=== PATIENT | female | born 1975 | race Caucasian/White ===

== ENCOUNTER 2018-12-08 12:06 | Emergency (ER) | payer OTHER, SELFPAY ==
[2018-12-08 12:15] VITALS: BP 147/81; PULSE 94; RESP 20; TEMP 36.8; O2SAT 100; BMI 24.7
--- NOTE | 2018-12-08 12:21 | ED.FEMALEGU ---
HPI - Female Genitourinary <AMBIKA Rogers - Last Filed: 12/08/18 13:19> General Chief complaint: Urogenital-Female Stated complaint: UTI Time Seen by Provider: 12/08/18 12:15 Source: patient Mode of arrival: ambulatory Limitations: no limitations History of Present Illness HPI Narrative: A 43-year-old female with a history of a hysterectomy, presents emergency department complaining of dysuria on and off for the past 4 days after swimming [place]. States she initially developed a fever for a day which subsided with the dysuria after drinking a lot of water. The past 2 days her symptoms have slowly returned, as she was unable to drink enough water, today the dysuria is worse and is associated with mild nausea, and constant dull aching 3/10 left flank pain. Denies aggravating or relieving symptoms. Denies fevers at this time, chills, chest pain, shortness of breath, headache, vomiting, change in stool patterns, vaginal discharge, dizziness, or leg swelling. Related Data Previous Rx's Medication Instructions Recorded sulfamethoxazole-trimethoprim 1 tab PO BID 5 Days #10 tab 12/08/18 [Bactrim DS] Allergies Allergy/AdvReac Type Severity Reaction Status Date / Time No Known Drug Allergies Allergy Verified 12/08/18 12:21 Review of Systems <AMBIKA Rogers - Last Filed: 12/08/18 13:19> Review of Systems REVIEW OF SYSTEMS: GENERAL: See HPI reports history fevers. HENT: No head trauma, hearing loss or sore throat. CARDIOVASCULAR: No chest pain or syncope. RESPIRATORY: No shortness of breath or cough. GASTROINTESTINAL: See HPI, reports nausea. GENITOURINARY: See HPI, reports flank plain and dysuria. MUSCULOSKELETAL: No pain, weakness, or deformities. INTEGUMENTARY: No rash, lesions, or pruritus. NEURO: No numbness, tingling, memory loss, or confusion. PSYCH: No behavior or mood changes. PFSH <AMBIKA Rogers - Last Filed: 12/08/18 13:19> Medical History H/O: hysterectomy (Chronic) Social History Smoking Status: Never smoker Social History Smoking Status: Never smoker Exam <AMBIKA Rogers - Last Filed: 12/08/18 13:19> Initial Vital Signs Initial Vital Signs: Vital Signs Temperature 98.3 F 12/08/18 12:15 Pulse Rate 94 H 12/08/18 12:15 Respiratory Rate 20 12/08/18 12:15 Blood Pressure 147/81 H 12/08/18 12:15 Pulse Oximetry 100 12/08/18 12:15 PHYSICAL EXAMINATION: GENERAL: Well groomed, alert, and cooperative Answers questions promptly and appropriately. Vital signs noted. HENT: Normocephalic, atraumatic. Facial features symmetrical. EYES: PERRLA, EOMIs, conjunctiva pink, sclera white, no periorbital swelling. CHEST: Normal to inspection and without deformities. CARDIOVASCULAR: S1 and S2 sounds normal. Regular rate and rhythm, no murmurs, clicks, or bruits. No pedal edema. RESPIRATORY: Normal respiratory rate, trachea midline, airway patent. No stridor, nasal flaring or accessory muscle use. Lungs are clear in all [place] without wheeze, rhonchi, or crackles. GASTROINTESTINAL: Bowel sounds normoactive. Abdomen is soft. Slight tenderness to deep palpation in lower pelvic area. Slight tenderness to left flank on exam. No rebound tenderness no right or left quadrant tenderness. No bruising or masses. No organomegaly present. MUSCULOSKELETAL: Normal gait and coordination. Equal tone and mass bilaterally. No spinal tenderness or deformities. EXTREMITIES: CMS intact. Moves all extremities. SKIN: Warm, dry, soft, appropriate color for ethnicity. No lesions, rashes, or wounds. NEURO: Alert and Oriented X 3. Good coordination. No ataxia, or sensory deficits, or cognitive issues. PSYCH: Appropriate affect and mood. <Senthil Redman DO - Last Filed: 12/08/18 14:14> Initial Vital Signs Initial Vital Signs: Vital Signs Temperature 98.3 F 12/08/18 12:15 Pulse Rate 94 H 12/08/18 12:15 Respiratory Rate 20 12/08/18 12:15 Blood Pressure 147/81 H 12/08/18 12:15 Pulse Oximetry 100 12/08/18 12:15 Course <AMBIKA Rogers - Last Filed: 12/08/18 13:19> Course Narrative: Patient given Pyridium for comfort during the ED. Orders Ordered: ED Orders 12/08/18 12:14 Urine Culture Stat Urine Microscopic Stat Discontinued Medications Phenazopyridine HCl (Pyridium) 200 mg PO NOW ONE Stop: 12/08/18 12:46 Last Admin: 12/08/18 12:57 Dose: 200 mg Consultations Consultation #1: Patient staffed with Dr. Redman. Vital Signs - 8 hr 12/08/18 12:15 12/08/18 13:03 Temperature 98.3 F 99.4 F Pulse Rate 94 H 96 H Respiratory Rate 20 20 Blood Pressure 147/81 H 140/65 Pulse Oximetry 100 99 <Senthil Redman DO - Last Filed: 12/08/18 14:14> Orders Ordered: ED Orders 12/08/18 12:14 Urine Culture Stat Urine Microscopic Stat Discontinued Medications Phenazopyridine HCl (Pyridium) 200 mg PO NOW ONE Stop: 12/08/18 12:46 Last Admin: 12/08/18 12:57 Dose: 200 mg Vital Signs - 8 hr 12/08/18 12:15 12/08/18 13:03 Temperature 98.3 F 99.4 F Pulse Rate 94 H 96 H Respiratory Rate 20 20 Blood Pressure 147/81 H 140/65 Pulse Oximetry 100 99 MDM - Female Genitourinary <AMBIKA Rogers - Last Filed: 12/08/18 13:19> Medical Records Attestation: I reviewed the patient's medical records. Lab Data Attestation: I reviewed the patient's lab results. Lab Results 12/08/18 Range/Units 12:14 Urine RBC None seen (0-5/HPF) Urine WBC 1-5/hpf (0-5/HPF) Ur Squamous Epith Cells 0-1 /hpf (0-5/HPF) Urine Bacteria Few (2-10) H (None) Ur Culture Indicated? Specimen cultured Urine Dip Bedside Urine Glucose Negative Bedside Urine Bilirubin - Negative Bedside Urine Ketone - Negative Urine Specific Jolon 1.010 Bedside Urine Occult Blood ++ Bedside Urine pH 7.0 Bedside Urine Protein ++ 100 Bedside Urine Urobilinogen - Negative Bedside Urine Nitrite - Negative Bedside Urine Leukocytes +++ 500 Esterase MDM Narrative Medical decision making narrative: No urine was done as patient has had hysterectomy. Suspect that her symptoms are caused by UTI, while the urine micro showed few bacteria patient has stated she has been drinking a lot of water which could lead to dilution, she had tenderness over her bladder and slight tenderness over left flank, she complains of intermittent fevers in the past, and symptoms resolved after drinking a lot of water but then returned. Less likely appendicitis (lack of fever, s/s, and RLQ pain), PID ( h/o of hysterectomy and no vaginal discharge), less likely renal calculi (lack of vomiting, severe flank pain, and that s/s resolved with increased hydration). Less likely pyelonephritis due to only slight tenderness on left flank, fever at this time, lack of vomiting, and lack of severe acute presentation. However, discussed with the patient alternative diagnosis and that she will receive a call about her culture in the coming days. Strict return precautions given and follow-up instructions discussed. <Senthil Redman DO - Last Filed: 12/08/18 14:14> Lab Data Lab Results 12/08/18 Range/Units 12:14 Urine RBC None seen (0-5/HPF) Urine WBC 1-5/hpf (0-5/HPF) Ur Squamous Epith Cells 0-1 /hpf (0-5/HPF) Urine Bacteria Few (2-10) H (None) Ur Culture Indicated? Specimen cultured Urine Dip Bedside Urine Glucose Negative Bedside Urine Bilirubin - Negative Bedside Urine Ketone - Negative Urine Specific Jolon 1.010 Bedside Urine Occult Blood ++ Bedside Urine pH 7.0 Bedside Urine Protein ++ 100 Bedside Urine Urobilinogen - Negative Bedside Urine Nitrite - Negative Bedside Urine Leukocytes +++ 500 Esterase Discharge Plan Departure Patient Disposition: Home Clinical Impression: Urinary tract infection Qualifiers: Urinary tract infection type: acute pyelonephritis Qualified Code(s): N10 - Acute pyelonephritis Discharge Date/Time: 12/08/18 13:05 Interventions: ED Discharge Assessment Last Done: 12/08/18 13:03 Instructions: DI for Urinary Tract Infection (UTI) Activity Restrictions/Additional Instructions: Thank you for entrusting me with your care today. As discussed, it appears her symptoms are caused from urinary tract infection. We have sent your urine for a culture which takes about 2 days, you will get a call if the results require you to change antibiotics. Have prescribed you an antibiotic to take twice a day, please continue to take this until it is gone even if you feel better. He can use [id number] Pyridium for pain, do not use more than 3 days in a row. Please follow up with your primary care provider in the next week. Return to the emergency department if you experience increasing fevers, nausea and uncontrolled vomiting, chest pain, shortness of breath, or severe abdominal pain. Prescriptions: New sulfamethoxazole-trimethoprim [Bactrim DS] 800-160 mg tablet 1 tab PO BID 5 Days Qty: 10 RF: 0 <Senthil Redman DO - Last Filed: 12/08/18 14:14> [facility] ED Attending Naz Attestation: I was available for consultation during this patient's emergency department encounter
[2018-12-08] MEDS: PHENAZOPYRIDINE 100 MG TABLET 200 MG PO (12:57)
[2018-12-08 13:03] VITALS: BP 140/65; PULSE 96; RESP 20; TEMP 37.4; O2SAT 99
[2018-12-09 08:12] LABS: RBC Urine None Seen (0-5/HPF)
[2018-12-09 08:37] LABS: Bacteria Urine Moderate (10-30); WBC Urine 10-30/HPF (0-5/HPF)
== END 2018-12-08 13:05 | disposition home or self-care (01) ==
PROVIDERS: Emergency Provider Nurse Practitioner
DX: N10 Acute pyelonephritis (principal)
CPT/HCPCS: 81003; 81015; 87077; 87086; 87186; 99282; 99283